=== PATIENT | female | born 1955 | race Caucasian/White ===

== ENCOUNTER → 2018-11-15 | Outpatient (CLI) | payer MEDICARE, OTHER ==
[~2018-11-15] MED LIST: AMLO5 PO; ATEN50; ATEN50 PO; HYDCHL25 PO; INSN100I SC; INSR10I; INSR10I SC; LISI20; LISI20 PO; METF500; METF500 PO; WARF10 PO; WARF5 PO; [UNRECOGNIZED DRUG - CODE]
[2018-11-15 19:53] LABS: International Normalized Ratio 2.22; Prothrombin Time Results 21.9 Sec (9.7-11.5)
== END | disposition home or self-care (01) ==
LOC: LAB SHORT 18:31 → LAB 18:31
PROVIDERS: Nurse Practitioner Family
DX: Z79.01 Long term (current) use of anticoagulants (principal); Z51.81 Encounter for therapeutic drug level monitoring
CPT/HCPCS: 85610

== ENCOUNTER → 2018-12-27 | Outpatient (CLI) | payer MEDICARE, OTHER ==
[2018-12-27 20:06] LABS: International Normalized Ratio 2.19; Prothrombin Time Results 21.6 Sec (9.7-11.5)
== END | disposition home or self-care (01) ==
LOC: LAB 18:08 → LAB SHORT 18:08
PROVIDERS: Nurse Practitioner Family
DX: Z79.01 Long term (current) use of anticoagulants (principal); Z51.81 Encounter for therapeutic drug level monitoring
CPT/HCPCS: 85610

== ENCOUNTER → 2019-02-28 | Outpatient (CLI) | payer MEDICARE, OTHER ==
[2019-02-28 18:25] LABS: International Normalized Ratio 1.58; Prothrombin Time Results 16.5 Sec (9.7-11.5)
== END | disposition home or self-care (01) ==
LOC: LAB 16:57 → LAB SHORT 16:57
PROVIDERS: Nurse Practitioner Family
DX: Z79.01 Long term (current) use of anticoagulants (principal); Z51.81 Encounter for therapeutic drug level monitoring; Z11.59 Encounter for screening for other viral diseases
CPT/HCPCS: 85610; 86803

== ENCOUNTER → 2019-03-16 | Outpatient (CLI) | payer MEDICARE, OTHER ==
[2019-03-16 18:54] LABS: Prothrombin Time Results 43.4 Sec (9.7-11.5)
[2019-03-16 19:34] LABS: International Normalized Ratio 4.41
== END | disposition home or self-care (01) ==
LOC: LAB SHORT 17:34 → LAB 17:34
PROVIDERS: Nurse Practitioner Family
DX: Z79.01 Long term (current) use of anticoagulants (principal); Z51.81 Encounter for therapeutic drug level monitoring
CPT/HCPCS: 85610

== ENCOUNTER → 2019-03-23 | Outpatient (CLI) | payer MEDICARE, OTHER ==
[2019-03-23 17:56] LABS: International Normalized Ratio 1.87; Prothrombin Time Results 19.3 Sec (9.7-11.5)
== END ==
LOC: LAB SHORT 16:27 → LAB 16:27
PROVIDERS: Nurse Practitioner Family
DX: Z79.01 Long term (current) use of anticoagulants (principal); Z51.81 Encounter for therapeutic drug level monitoring
CPT/HCPCS: 85610

== ENCOUNTER → 2019-04-24 | Outpatient (CLI) | payer MEDICARE, OTHER ==
[2019-04-24 17:46] LABS: International Normalized Ratio 2.35
== END ==
LOC: LAB SHORT 16:20 → LAB 16:20
PROVIDERS: Nurse Practitioner Family
DX: Z79.01 Long term (current) use of anticoagulants (principal); Z51.81 Encounter for therapeutic drug level monitoring
CPT/HCPCS: 85610

== ENCOUNTER → 2019-06-13 | Outpatient (CLI) | payer MEDICARE, OTHER ==
[2019-06-13 17:43] LABS: Source, Urine Clean Catch
[2019-06-13 19:54] LABS: BASOPHILS ABSOLUTE AUTO 0.04 K/mm3 (0.00-0.23); BASOPHILS PERCENT AUTO 1 % (0-2); EOSINOPHILS ABSOLUTE AUTO 0.55 K/mm3 (0.00-0.68); EOSINOPHILS PERCENT AUTO 11 % (0-6); Hematocrit 50.8 % (33.0-51.0); Hemoglobin 16.1 g/dL (11.5-16.0); IMMATURE GRAN ABSOLUTE AUTO 0.05 K/mm3 (0.00-0.10); IMMATURE GRAN PERCENT AUTO 1 % (0-1); LYMPHOCYTES ABSOLUTE AUTO 1.39 K/mm3 (0.84-5.20); LYMPHOCYTES PERCENT AUTO 28 % (21-46); MONOCYTES ABSOLUTE AUTO 0.55 K/mm3 (0.16-1.47); MONOCYTES PERCENT AUTO 11 % (4-13); Mean Corpuscular HGB Conc 31.7 g/dL (31.5-36.5); Mean Corpuscular Volume 91 fL (80-100); Mean Platelet Volume 11.3 fL (9.1-12.4); NEUTROPHILS ABSOLUTE AUTO 2.38 K/mm3 (1.96-9.15); NEUTROPHILS PERCENT AUTO 48 % (41-73); Platelet Count 200 K/mm3 (150-400); RDW Coefficient Variation 12.9 % (11.7-14.2); RDW Standard Deviation 43.9 fL (35.1-46.3); Red Blood Cell Count 5.56 M/mm3 (3.80-5.20); White Blood Cell Count 4.96 K/mm3 (4.00-11.30)
[2019-06-13 20:05] LABS: International Normalized Ratio 1.87; Prothrombin Time Results 19.3 Sec (9.7-11.5)
[2019-06-13 20:07] LABS: Bilirubin, Urine Neg (Neg); Blood, Urine Neg (Neg); Glucose Qualitative, Urine 4+ (Neg); Ketones, Urine Neg (Neg); Leukocyte Esterase, Urine 2+ (Neg); Nitrite, Urine Neg (Neg); Protein, Urine Neg (Neg); Urobilinogen, Urine NORM (Normal)
[2019-06-13 20:09] LABS: Appearance, Urine Clear (Clear); Color, Urine Yellow (P-Yellow)
[2019-06-13 20:10] LABS: Bacteria Mod /hpf; Red Blood Cells, Urine 0-2 /hpf (0-2); Squamous Epithelial Cells Few /hpf (Few)
[2019-06-13 20:49] LABS: Alanine Aminotransfer (ALT/SGP 23 U/L (12-78); Albumin, Blood 3.7 g/dL (3.4-5.0); Albumin/Globulin Ratio 1.1 (0.8-1.8); Alk Phos 64 U/L (50-136); Anion Gap 3 mmol/L (6-16); Aspartate Aminotrans (AST/SGOT 12 U/L (12-37); Bilirubin, Total 0.4 mg/dL (0.1-1.0); Blood Urea Nitrogen 15 mg/dL (8-24); CHOL/HDL RATIO 4.8; CO2, Blood 30 mmol/L (21-32); Calcium, Blood 8.4 mg/dL (8.5-10.1); Chloride, Blood 104 mmol/L (98-108); Cholesterol 143 mg/dL (50-200); Creatinine, Blood 0.71 mg/dL (0.40-1.00); Globulin, Blood 3.5 g/dL (2.2-4.0); Glomerular Filtration Rate >60 (60-); Glucose, Blood 202 mg/dL (70-99); HDL Cholesterol 30 mg/dL (>39); LDL Direct Measurement 61 mg/dL (0-130); LDL/HDL RATIO 2.5; Low Density Lipoprotein Chol 76 mg/dL (0-110); Potassium, Blood 3.8 mmol/L (3.5-5.5); Sodium, Blood 137 mmol/L (136-145); Total Protein, Blood 7.2 g/dL (6.4-8.2); Triglycerides 186 mg/dL (30-160); Very Low Density Lipoprot Chol 37 mg/dL (6-32)
[2019-06-13 21:03] LABS: Creatinine, Urine Random 30.9 mg/dL (27.00-270.00)
[2019-06-13 21:06] LABS: Microalb/Creat Ratio UR, Rand 144.984 mg/g (0.000-30.000); Microalbumin, Random Urine 44.8 mg/L (0.000-20.000)
== END | disposition home or self-care (01) ==
LOC: LAB 17:40 → LAB SHORT 17:40
PROVIDERS: Nurse Practitioner Family
DX: Z79.01 Long term (current) use of anticoagulants (principal); Z51.81 Encounter for therapeutic drug level monitoring; I10 Essential (primary) hypertension; E11.21 Type 2 diabetes mellitus with diabetic nephropathy; E78.5 Hyperlipidemia, unspecified
CPT/HCPCS: 80053; 80061; 81001; 82043; 82570; 83036; 83721; 85025; 85610; 87086

== ENCOUNTER → 2019-10-03 | Outpatient (CLI) | payer MEDICARE, OTHER ==
[2019-10-03 19:37] LABS: International Normalized Ratio 1.92; Prothrombin Time Results 19.8 Sec (9.7-11.5)
== END | disposition home or self-care (01) ==
LOC: LAB 17:59 → LAB SHORT 17:59
PROVIDERS: Nurse Practitioner Family
DX: Z79.01 Long term (current) use of anticoagulants (principal); Z51.81 Encounter for therapeutic drug level monitoring
CPT/HCPCS: 85610

== ENCOUNTER → 2019-11-14 | Outpatient (CLI) | payer MEDICARE, OTHER ==
[2019-11-14 18:11] LABS: International Normalized Ratio 2.25
== END | disposition home or self-care (01) ==
LOC: LAB 16:48 → LAB SHORT 16:48
PROVIDERS: Nurse Practitioner Family
DX: Z79.01 Long term (current) use of anticoagulants (principal); Z51.81 Encounter for therapeutic drug level monitoring
CPT/HCPCS: 85610

== ENCOUNTER → 2019-12-14 | Outpatient (CLI) | payer MEDICARE, OTHER ==
[2019-12-14 19:55] LABS: International Normalized Ratio 2.89; Prothrombin Time Results 29.1 Sec (9.7-11.5)
== END | disposition home or self-care (01) ==
LOC: LAB SHORT 17:38 → LAB 17:38
PROVIDERS: Nurse Practitioner Family
DX: Z79.01 Long term (current) use of anticoagulants (principal); Z51.81 Encounter for therapeutic drug level monitoring
CPT/HCPCS: 85610

== ENCOUNTER → 2020-01-18 | Outpatient (CLI) | payer MEDICARE, OTHER ==
[2020-01-18 18:29] LABS: International Normalized Ratio 2.39; Prothrombin Time Results 24.3 Sec (9.7-11.5)
== END | disposition home or self-care (01) ==
LOC: LAB 17:24
PROVIDERS: Nurse Practitioner Family
DX: Z79.01 Long term (current) use of anticoagulants (principal); Z51.81 Encounter for therapeutic drug level monitoring
CPT/HCPCS: 85610

== ENCOUNTER → 2020-04-18 | Outpatient (CLI) | payer MEDICARE, OTHER ==
[2020-04-18 17:43] LABS: BASOPHILS ABSOLUTE AUTO 0.05 K/mm3 (0.00-0.23); BASOPHILS PERCENT AUTO 1 % (0-2); EOSINOPHILS ABSOLUTE AUTO 0.64 K/mm3 (0.00-0.68); EOSINOPHILS PERCENT AUTO 13 % (0-6); Hematocrit 49.4 % (33.0-51.0); Hemoglobin 16.5 g/dL (11.5-16.0); IMMATURE GRAN ABSOLUTE AUTO 0.03 K/mm3 (0.00-0.10); IMMATURE GRAN PERCENT AUTO 1 % (0-1); LYMPHOCYTES ABSOLUTE AUTO 1.28 K/mm3 (0.84-5.20); LYMPHOCYTES PERCENT AUTO 25 % (21-46); MONOCYTES ABSOLUTE AUTO 0.44 K/mm3 (0.16-1.47); MONOCYTES PERCENT AUTO 9 % (4-13); Mean Corpuscular HGB Conc 33.4 g/dL (31.5-36.5); Mean Corpuscular Volume 87 fL (80-100); Mean Platelet Volume 11.5 fL (9.1-12.4); NEUTROPHILS PERCENT AUTO 52 % (41-73); Platelet Count 190 K/mm3 (150-400); RDW Coefficient Variation 12.3 % (11.7-14.2); RDW Standard Deviation 38.9 fL (35.1-46.3); Red Blood Cell Count 5.69 M/mm3 (3.80-5.20); White Blood Cell Count 5.14 K/mm3 (4.00-11.30)
[2020-04-18 17:44] LABS: Appearance, Urine Clear (Clear); Bilirubin, Urine Neg (Neg); Blood, Urine 1+ (Neg); Color, Urine Yellow (P-Yellow); Glucose Qualitative, Urine 4+ (Neg); Ketones, Urine Neg (Neg); Leukocyte Esterase, Urine Neg (Neg); Nitrite, Urine Neg (Neg); Protein, Urine 1+ (Neg); Urobilinogen, Urine NORM (Normal)
[2020-04-18 17:52] LABS: Bacteria Few /hpf; Squamous Epithelial Cells Few /hpf (Few)
[2020-04-18 18:20] LABS: Alanine Aminotransfer (ALT/SGP 27 U/L (12-78); Albumin, Blood 3.8 g/dL (3.4-5.0); Albumin/Globulin Ratio 1.2 (0.8-1.8); Alk Phos 76 U/L (50-136); Anion Gap 6 mmol/L (6-16); Aspartate Aminotrans (AST/SGOT 12 U/L (12-37); Bilirubin, Total 0.7 mg/dL (0.1-1.0); Blood Urea Nitrogen 15 mg/dL (8-24); Bun/Creatinine Ratio 20.8 (12.0-20.0); CHOL/HDL RATIO 3.6; CO2, Blood 28 mmol/L (21-32); Calcium, Blood 8.6 mg/dL (8.5-10.1); Chloride, Blood 103 mmol/L (98-108); Cholesterol 107 mg/dL (50-200); Creatinine, Blood 0.72 mg/dL (0.40-1.00); Globulin, Blood 3.3 g/dL (2.2-4.0); Glomerular Filtration Rate >60 (60-); Glucose, Blood 255 mg/dL (70-99); HDL Cholesterol 30 mg/dL (>39); LDL Direct Measurement 58 mg/dL (0-130); LDL/HDL RATIO 1.3; Low Density Lipoprotein Chol 38 mg/dL (0-110); Sodium, Blood 137 mmol/L (136-145); Total Protein, Blood 7.1 g/dL (6.4-8.2); Triglycerides 193 mg/dL (30-160); Very Low Density Lipoprot Chol 38 mg/dL (6-32)
== END | disposition home or self-care (01) ==
LOC: LAB 16:38 → LAB SHORT 16:38
PROVIDERS: Nurse Practitioner Family
DX: E11.21 Type 2 diabetes mellitus with diabetic nephropathy (principal); E78.5 Hyperlipidemia, unspecified
CPT/HCPCS: 80053; 80061; 81001; 83036; 83721; 85025

== ENCOUNTER → 2020-07-18 | Outpatient (CLI) | payer MEDICARE, OTHER ==
[2020-07-18 20:05] LABS: International Normalized Ratio 1.8; Prothrombin Time Results 18.8 Sec (9.7-11.5)
== END | disposition home or self-care (01) ==
LOC: LAB SHORT 13:10 → LAB 13:10
PROVIDERS: Nurse Practitioner Family
DX: Z09 Encounter for follow-up examination after completed treatment for conditions other than malignant neoplasm (principal); Z86.718 Personal history of other venous thrombosis and embolism
CPT/HCPCS: 85610

== ENCOUNTER → 2021-03-11 | Outpatient (CLI) | payer MEDICARE, OTHER ==
[2021-03-11 19:14] LABS: International Normalized Ratio 1.86; Prothrombin Time Results 18.8 Sec (9.7-11.5)
[2021-03-11 22:16] LABS: Alanine Aminotransfer (ALT/SGP 30 U/L (12-78); Albumin, Blood 3.6 g/dL (3.4-5.0); Albumin/Globulin Ratio 1.1 (0.8-1.8); Alk Phos 53 U/L (50-136); Anion Gap 6 mmol/L (6-16); Aspartate Aminotrans (AST/SGOT 12 U/L (12-37); Bilirubin, Total 0.7 mg/dL (0.1-1.0); Blood Urea Nitrogen 17 mg/dL (8-24); Bun/Creatinine Ratio 18.7 (12.0-20.0); CO2, Blood 28 mmol/L (21-32); Calcium, Blood 8.7 mg/dL (8.5-10.1); Chloride, Blood 103 mmol/L (98-108); Cholesterol 101 mg/dL (50-200); Creatinine, Blood 0.91 mg/dL (0.40-1.00); Globulin, Blood 3.2 g/dL (2.2-4.0); Glomerular Filtration Rate >60 (60-); Glucose, Blood 268 mg/dL (70-99); Potassium, Blood 3.8 mmol/L (3.5-5.5); Sodium, Blood 137 mmol/L (136-145); Total Protein, Blood 6.8 g/dL (6.4-8.2)
== END | disposition home or self-care (01) ==
LOC: LAB SHORT 10:00 → LAB 10:00
PROVIDERS: Nurse Practitioner Family
DX: E11.40 Type 2 diabetes mellitus with diabetic neuropathy, unspecified (principal); I10 Essential (primary) hypertension; E78.5 Hyperlipidemia, unspecified; I82.409 Acute embolism and thrombosis of unspecified deep veins of unspecified lower extremity
CPT/HCPCS: 80053; 82043; 82465; 84443; 85610

== ENCOUNTER → 2021-04-03 | Outpatient (CLI) | payer MEDICARE, OTHER ==
[2021-04-03 18:16] LABS: International Normalized Ratio 3.99; Prothrombin Time Results 38.3 Sec (9.7-11.5)
== END | disposition home or self-care (01) ==
LOC: LAB SHORT 14:05 → LAB 14:05
PROVIDERS: Nurse Practitioner Family
DX: Z09 Encounter for follow-up examination after completed treatment for conditions other than malignant neoplasm (principal); Z86.718 Personal history of other venous thrombosis and embolism
CPT/HCPCS: 85610

== ENCOUNTER → 2021-04-23 | Outpatient (CLI) | payer MEDICARE, OTHER ==
[2021-04-23 16:50] LABS: International Normalized Ratio 2.66; Prothrombin Time Results 26.2 Sec (9.7-11.5)
== END | disposition home or self-care (01) ==
LOC: LAB SHORT 12:15
PROVIDERS: Nurse Practitioner Family
DX: Z09 Encounter for follow-up examination after completed treatment for conditions other than malignant neoplasm (principal); Z86.718 Personal history of other venous thrombosis and embolism
CPT/HCPCS: 85610

== ENCOUNTER → 2022-06-01 | Outpatient (CLI) | payer MEDICARE, OTHER ==
[2022-06-01 17:46] LABS: BASOPHILS ABSOLUTE AUTO 0.05 K/mm3 (0.00-0.23); BASOPHILS PERCENT AUTO 1 % (0-2); EOSINOPHILS ABSOLUTE AUTO 0.41 K/mm3 (0.00-0.68); EOSINOPHILS PERCENT AUTO 7 % (0-6); Hemoglobin 15.2 g/dL (11.5-16.0); IMMATURE GRAN ABSOLUTE AUTO 0.08 K/mm3 (0.00-0.10); IMMATURE GRAN PERCENT AUTO 1 % (0-1); LYMPHOCYTES ABSOLUTE AUTO 1.51 K/mm3 (0.84-5.20); LYMPHOCYTES PERCENT AUTO 24 % (21-46); MONOCYTES ABSOLUTE AUTO 0.62 K/mm3 (0.16-1.47); MONOCYTES PERCENT AUTO 10 % (4-13); Mean Corpuscular HGB 29.5 pg (26.0-34.0); Mean Corpuscular HGB Conc 33.8 g/dL (31.5-36.5); Mean Corpuscular Volume 87 fL (80-100); Mean Platelet Volume 10.8 fL (9.1-12.4); NEUTROPHILS ABSOLUTE AUTO 3.59 K/mm3 (1.96-9.15); NEUTROPHILS PERCENT AUTO 57 % (41-73); Platelet Count 244 K/mm3 (150-400); RDW Coefficient Variation 13.6 % (11.7-14.2); RDW Standard Deviation 43.1 fL (35.1-46.3); Red Blood Cell Count 5.16 M/mm3 (3.80-5.20); White Blood Cell Count 6.26 K/mm3 (4.00-11.30)
[2022-06-01 18:19] LABS: Very Low Density Lipoprot Chol 78 mg/dL (6-32)
[2022-06-01 18:31] LABS: Alanine Aminotransfer (ALT/SGP 35 U/L (12-78); Albumin, Blood 3.4 g/dL (3.4-5.0); Albumin/Globulin Ratio 0.9 (0.8-1.8); Alk Phos 69 U/L (50-136); Anion Gap 8 mmol/L (6-16); Aspartate Aminotrans (AST/SGOT 14 U/L (12-37); Bilirubin, Total 0.5 mg/dL (0.1-1.0); Blood Urea Nitrogen 25 mg/dL (8-24); Bun/Creatinine Ratio 24.8 (12.0-20.0); CHOL/HDL RATIO 5.7; CO2, Blood 24 mmol/L (21-32); Calcium, Blood 9.2 mg/dL (8.5-10.1); Chloride, Blood 103 mmol/L (98-108); Cholesterol 171 mg/dL (50-200); Creatinine, Blood 1.01 mg/dL (0.40-1.00); Globulin, Blood 3.6 g/dL (2.2-4.0); Glomerular Filtration Rate 61 (60-); Glucose, Blood 332 mg/dL (70-99); HDL Cholesterol 30 mg/dL (>39); LDL/HDL RATIO 2.1; Low Density Lipoprotein Chol 63 mg/dL (0-110); Potassium, Blood 3.7 mmol/L (3.5-5.5); Sodium, Blood 135 mmol/L (136-145); Thyroid Stimulating Hormone 0.477 uIU/mL (0.360-4.800); Triglycerides 391 mg/dL (30-160)
== END | disposition home or self-care (01) ==
LOC: LAB SHORT 16:43 → LAB 16:43
PROVIDERS: Nurse Practitioner Family
DX: Z13.9 Encounter for screening, unspecified (principal); E78.5 Hyperlipidemia, unspecified; E55.9 Vitamin D deficiency, unspecified; Z79.4 Long term (current) use of insulin
CPT/HCPCS: 80053; 80061; 82306; 83036; 84443; 85025

== ENCOUNTER → 2023-03-04 | Outpatient (CLI) | payer MEDICARE ==
[2023-03-04 17:34] LABS: BASOPHILS ABSOLUTE AUTO 0.05 K/mm3 (0.00-0.23); BASOPHILS PERCENT AUTO 1 % (0-2); EOSINOPHILS ABSOLUTE AUTO 0.43 K/mm3 (0.00-0.68); EOSINOPHILS PERCENT AUTO 6 % (0-6); Hematocrit 51.8 % (33.0-51.0); Hemoglobin 16.6 g/dL (11.5-16.0); IMMATURE GRAN ABSOLUTE AUTO 0.07 K/mm3 (0.00-0.10); IMMATURE GRAN PERCENT AUTO 1 % (0-1); LYMPHOCYTES ABSOLUTE AUTO 1.31 K/mm3 (0.84-5.20); LYMPHOCYTES PERCENT AUTO 19 % (21-46); MONOCYTES ABSOLUTE AUTO 0.52 K/mm3 (0.16-1.47); MONOCYTES PERCENT AUTO 8 % (4-13); Mean Corpuscular Volume 90 fL (80-100); Mean Platelet Volume 10.8 fL (9.1-12.4); NEUTROPHILS ABSOLUTE AUTO 4.58 K/mm3 (1.96-9.15); NEUTROPHILS PERCENT AUTO 66 % (41-73); Platelet Count 225 K/mm3 (150-400); RDW Coefficient Variation 12.8 % (11.7-14.2); RDW Standard Deviation 42.1 fL (35.1-46.3); Red Blood Cell Count 5.73 M/mm3 (3.80-5.20); White Blood Cell Count 6.96 K/mm3 (4.00-11.30)
[2023-03-04 17:42] LABS: Magnesium, Blood 1.4 mg/dL (1.6-2.4)
[2023-03-04 17:52] LABS: Cholesterol 128 mg/dL (50-200); HDL Cholesterol 32 mg/dL (>39); Low Density Lipoprotein Chol 63 mg/dL (0-110); Triglycerides 167 mg/dL (30-160); Very Low Density Lipoprot Chol 33 mg/dL (6-32)
[2023-03-06 09:11] LABS: BILIRUBIN, TOTAL 0.4 mg/dL (0.0-1.2); CALCIUM, SERUM 9.2 mg/dL (8.7-10.3); CREATININE, SERUM 1.16 mg/dL (0.57-1.00); GLOBULIN, TOTAL 2.2 g/dL (1.5-4.5); POTASSIUM, SERUM 4.3 mmol/L (3.5-5.2); PROTEIN, TOTAL, SERUM 6.7 g/dL (6.0-8.5)
== END ==
LOC: LAB 16:11 → LAB SHORT 16:11
PROVIDERS: Family Medicine
DX: E78.5 Hyperlipidemia, unspecified (principal); R63.5 Abnormal weight gain; E55.9 Vitamin D deficiency, unspecified
CPT/HCPCS: 80053; 80061; 82306; 83735; 84443; 85025

== ENCOUNTER → 2024-04-03 | Outpatient (CLI) | payer MEDICARE ==
[~2024-04-03] MED LIST changes: +CHLO25B PO; +Coumadin2 MG PO; +ENOX120I SC; +ERGO50000 PO; +TRAZ50 PO; +WARF7.5 PO
[2024-04-03 17:22] LABS: BASOPHILS ABSOLUTE AUTO 0.06 K/mm3 (0.00-0.23); BASOPHILS PERCENT AUTO 1 % (0-2); EOSINOPHILS ABSOLUTE AUTO 0.59 K/mm3 (0.00-0.68); EOSINOPHILS PERCENT AUTO 10 % (0-6); Hematocrit 44.3 % (33.0-51.0); IMMATURE GRAN ABSOLUTE AUTO 0.09 K/mm3 (0.00-0.10); IMMATURE GRAN PERCENT AUTO 2 % (0-1); LYMPHOCYTES ABSOLUTE AUTO 1.56 K/mm3 (0.84-5.20); LYMPHOCYTES PERCENT AUTO 27 % (21-46); MONOCYTES ABSOLUTE AUTO 0.56 K/mm3 (0.16-1.47); MONOCYTES PERCENT AUTO 10 % (4-13); Mean Corpuscular HGB 29.2 pg (26.0-34.0); Mean Corpuscular HGB Conc 33.9 g/dL (31.5-36.5); Mean Corpuscular Volume 86 fL (80-100); Mean Platelet Volume 10.9 fL (9.1-12.4); NEUTROPHILS ABSOLUTE AUTO 2.86 K/mm3 (1.96-9.15); NEUTROPHILS PERCENT AUTO 50 % (41-73); Platelet Count 248 K/mm3 (150-400); RDW Coefficient Variation 13.2 % (11.7-14.2); RDW Standard Deviation 41.6 fL (35.1-46.3); Red Blood Cell Count 5.14 M/mm3 (3.80-5.20); White Blood Cell Count 5.72 K/mm3 (4.00-11.30)
[2024-04-03 18:37] LABS: Alanine Aminotransfer (ALT/SGP 21 U/L (12-78); Albumin, Blood 3.3 g/dL (3.4-5.0); Albumin/Globulin Ratio 0.9 (0.8-1.8); Alk Phos 83 U/L (50-136); Anion Gap 13 mmol/L (3-11); Bilirubin, Total 0.4 mg/dL (0.1-1.0); Blood Urea Nitrogen 37 mg/dL (8-24); CHOL/HDL RATIO 5.9; CO2, Blood 27 mmol/L (21-32); Calcium, Blood 9.5 mg/dL (8.5-10.1); Chloride, Blood 98 mmol/L (98-108); Cholesterol 165 mg/dL (50-200); Globulin, Blood 3.6 g/dL (2.2-4.0); Glucose, Blood 431 mg/dL (70-99); HDL Cholesterol 28 mg/dL (>39); LDL/HDL RATIO 2.3; Low Density Lipoprotein Chol 66 mg/dL (0-110); Potassium, Blood 3.7 mmol/L (3.5-5.5); Sodium, Blood 134 mmol/L (136-145); Total Protein, Blood 6.9 g/dL (6.4-8.2); Triglycerides 357 mg/dL (30-160); Very Low Density Lipoprot Chol 71 mg/dL (6-32)
[2024-04-03 18:50] LABS: Aspartate Aminotrans (AST/SGOT 8 U/L (12-37); Bun/Creatinine Ratio 28.9 (12.0-20.0); Creatinine, Blood 1.28 mg/dL (0.40-1.00); Glomerular Filtration Rate 45 (60-)
== END ==
LOC: LAB SHORT 16:10 → LAB 16:10
PROVIDERS: Nurse Practitioner Family
DX: E78.5 Hyperlipidemia, unspecified (principal); E11.40 Type 2 diabetes mellitus with diabetic neuropathy, unspecified; I10 Essential (primary) hypertension
CPT/HCPCS: 80053; 80061; 83036; 84443; 85025

== ENCOUNTER 2024-04-28 09:37 | Inpatient (IN) | payer MEDICARE ==
[~2024-04-28] VITALS: Ht 162.6 cm; Wt 116.3 kg
[2024-04-28] VITALS (14 sets, daily range): BP systolic 85–107; BP diastolic 59–77
[2024-04-28] MEDS ORDERED: Lactated Ringer's 1,000 ML IV ONE ×2 (09:55→10:00)
[2024-04-28] MEDS ORDERED: Albuterol 2.5 MG/3 ML VIAL INH ONE (09:55)
[2024-04-28] MEDS ORDERED: Ipratropium/Albuterol SulF 2.5-0.5MG/3 ML Amp INH ONE (09:55)
[2024-04-28] MEDS ORDERED: Acetaminophen 500 MG Tab PO ONE (09:55)
[2024-04-28] MEDS ORDERED: Ampicillin Sod/Sulbactam Sod 3 GM in NS 100 ML IV ONE (10:00)
[2024-04-28] MEDS ORDERED: Insulin Human Regular 100 UNIT in NS 100 ML IV SCH (10:00)
[2024-04-28] MEDS ORDERED: Potassium Chl 20MEQ/Water100ML 100 ML IV ONE ×3 (10:00→17:55)
[2024-04-28 10:08] LABS: Hemoglobin 13.9 g/dL (11.5-16.0); Mean Corpuscular HGB 29.9 pg (26.0-34.0); Mean Corpuscular HGB Conc 33.9 g/dL (31.5-36.5); Mean Corpuscular Volume 88 fL (80-100); Mean Platelet Volume 10.8 fL (9.1-12.4); NRBC ABSOLUTE 0.04 K/mm3 (0.00-0.02); NRBC Auto 0.3 /100 WBC (0.0-0.2); Platelet Count 140 K/mm3 (150-400); RDW Coefficient Variation 14.4 % (11.7-14.2); RDW Standard Deviation 46.2 fL (35.1-46.3); Red Blood Cell Count 4.65 M/mm3 (3.80-5.20); White Blood Cell Count 11.81 K/mm3 (4.00-11.30)
[2024-04-28 10:12] LABS: Base Excess Venous -10.2 mmol/L; Bicarbonate Venous 17.1 mmol/L (24.0-30.0); PCO2 Venous 33.5 mmHg (38-42)
[2024-04-28 10:33] LABS: BAND PERCENT MAN 16 % (0-8); BASOPHILS PERCENT MAN 0 % (0-2); EOSINOPHILS PERCENT MAN 0 % (0-6); LYMPHOCYTES ABSOLUTE MAN 1.06 K/mm3 (0.84-5.20); LYMPHOCYTES PERCENT MAN 9 % (21-46); MONOCYTES ABSOLUTE MAN 0.47 K/mm3 (0.16-1.47); MONOCYTES PERCENT MAN 4 % (4-13); NEUTROPHILS ABSOLUTE MAN 10.27 K/mm3 (1.96-9.15); SEG NEUTROPHILS PERCENT MAN 71 % (41-73); TOTAL CELLS COUNTED 100
[2024-04-28 10:45] LABS: Influenza A, PCR NEGATIVE (NEGATIVE); Influenza B, PCR NEGATIVE (NEGATIVE); Resp Syncytial Virus, PCR NEGATIVE (NEGATIVE); SARS-Cov-2 (COVID-19) PCR, MMC NEGATIVE (NEGATIVE)
[2024-04-28 11:07] LABS: International Normalized Ratio 3.03; Prothrombin Time Results 29.9 Sec (9.7-11.5)
[2024-04-28 11:09] LABS: Magnesium, Blood 1.2 mg/dL (1.6-2.4)
[2024-04-28 11:16] LABS: Albumin, Blood 2.9 g/dL (3.4-5.0); Albumin/Globulin Ratio 0.8 (0.8-1.8); Bilirubin, Total 0.8 mg/dL (0.1-1.0); Bun/Creatinine Ratio 15.8 (12.0-20.0); Calcium, Blood 8.7 mg/dL (8.5-10.1); Creatinine, Blood 2.09 mg/dL (0.40-1.00); Globulin, Blood 3.6 g/dL (2.2-4.0); Potassium, Blood 3.8 mmol/L (3.5-5.5); Total Protein, Blood 6.5 g/dL (6.4-8.2)
[2024-04-28] MEDS ORDERED: Magnesium Sulf 2 GM/Water 50ML 50 ML IV ONE (11:25)
[2024-04-28] MEDS ORDERED: Prochlorperazine Edisylate 10 mg Vial IV PRN (12:15)
[2024-04-28] MEDS ORDERED: D5W-1/2NS 1,000 ML IV SCH (12:20)
[2024-04-28] MEDS ORDERED: Acetaminophen 500 MG Tab PO PRN (12:20)
[2024-04-28] MEDS ORDERED: FLU VACC TS2024-25(6MOS UP)/PF 45 MCG/0.5 ML SYRINGE IM SCH (12:20)
[2024-04-28] MEDS ORDERED: Dextrose 50% 50 ML Syringe IV PRN (12:20)
[2024-04-28 12:43] LABS: Potassium, Blood 3.3 mmol/L (3.5-5.5)
[2024-04-28 12:59] LABS: Glucose, Blood 573 mg/dL (70-99)
[2024-04-28] MEDS ORDERED: CefTRIAXone Sodium 1,000 MG in NS 100 ML IV SCH (13:00)
[2024-04-28] MEDS ORDERED: Potassium Chloride 20 MEQ in NS 90 ML IV ONE (13:10)
[2024-04-28] MEDS ORDERED: NS 1,000 ML IV ONE (13:36)
[2024-04-28] MEDS ORDERED: NS 1,000 ML IV SCH (13:40)
[2024-04-28 14:04] LABS: Glucose, Blood 507 mg/dL (70-99)
[2024-04-28] MEDS ORDERED: INSULANI SC (14:08)
--- NOTE | 2024-04-28 14:21 | NUR ---
ADMIT PT ARRIVED TO ICU 2 VIA BED AT 1322. PT STOOD UP TO TRANSFER TO ICU BED. CHG BATH DONE. PT IS AWAKE, ALERT, AND ORIENTED. PT DENIES PAIN OF DISCOMFORT, BUT COMPLAINS OF SOB AND FEELING WARM. SPO2 >90% ON 4L O2 NC. VITAL SIGNS STABLE. INSULIN GTT INFUSING UPON ARRIVAL. IV FLUIDS STARTED PER ORDERS. WILL CONTINUE TO MONITOR.
[2024-04-28 17:24] LABS: Potassium, Blood 3.4 mmol/L (3.5-5.5)
--- NOTE | 2024-04-28 17:28 | NUR ---
SHIFT SUMMARY NO ACUTE CHANGES THIS AFTERNOON. PT HAS REMAINED AWAKE, ALERT, AND ORIENTED. PT DENIES PAIN OR DISCOMFORT. PT SITTING UP IN CHAIR AT THIS TIME. INSULIN GTT AND NS INFUSING. PT REMAINS ON 4L O2 NC WITH INCREASED WORK OF BREATHING WITH ANY ACTIVITY. VITAL SIGNS REMAIN STABLE. PT UP TO BSC FOR BM THIS AFTERNOON. NO FAMILY AT BEDSIDE. WILL CONTINUE TO MONITOR AND REPORT OFF TO ONCOMING RN.
[2024-04-28] MEDS ORDERED: Warfarin Sodium 5 MG Tab PO ONE (18:00)
[2024-04-28] MEDS ORDERED: Ondansetron HCl 2 MG / ML 2ML Vial IV PRN (18:50)
[2024-04-28] MEDS ORDERED: Lactobacil 2-S.Thermo-Bifido 1 1 Cap PO SCH (21:00)
[2024-04-28] MEDS ORDERED: GuaiFENesin 600 MG TabCR PO SCH (21:00)
[2024-04-28 21:05] LABS: Potassium, Blood 3.9 mmol/L (3.5-5.5)
[2024-04-28] MEDS ORDERED: Insulin Glargine-Yfgn 100 Unit/mL 3 ML SYR SC SCH (21:25)
[2024-04-29] VITALS (12 sets, daily range): BP systolic 97–141; BP diastolic 50–99
[2024-04-29] MEDS ORDERED: Insulin Regular 100 UNIT/ML 10ML Vial SC SCH
--- NOTE | 2024-04-29 01:18 | NUR ---
[facility] CALLED TO DR MAHAN
[2024-04-29 04:27] LABS: Hematocrit 40.1 % (33.0-51.0); Hemoglobin 13.3 g/dL (11.5-16.0); Mean Corpuscular HGB 29.2 pg (26.0-34.0); Mean Corpuscular HGB Conc 33.2 g/dL (31.5-36.5); Mean Corpuscular Volume 88 fL (80-100); Mean Platelet Volume 11.1 fL (9.1-12.4); Platelet Count 111 K/mm3 (150-400); RDW Coefficient Variation 14.9 % (11.7-14.2); RDW Standard Deviation 47.8 fL (35.1-46.3); Red Blood Cell Count 4.55 M/mm3 (3.80-5.20); White Blood Cell Count 23.31 K/mm3 (4.00-11.30)
[2024-04-29 04:40] LABS: International Normalized Ratio 2.7; Prothrombin Time Results 26.8 Sec (9.7-11.5)
[2024-04-29 04:56] LABS: Albumin, Blood 2.7 g/dL (3.4-5.0); Anion Gap 10 mmol/L (3-11); Blood Urea Nitrogen 46 mg/dL (8-24); CO2, Blood 24 mmol/L (21-32); Calcium, Blood 8.2 mg/dL (8.5-10.1); Chloride, Blood 102 mmol/L (98-108); Creatinine, Blood 2.55 mg/dL (0.40-1.00); Glomerular Filtration Rate 20 (60-); Glucose, Blood 226 mg/dL (70-99); Phosphorus, Blood 3.4 mg/dL (2.5-4.9); Potassium, Blood 4.3 mmol/L (3.5-5.5); Sodium, Blood 132 mmol/L (136-145); Thyroid Stimulating Hormone 0.253 uIU/mL (0.360-4.800)
--- NOTE | 2024-04-29 05:24 | NUR ---
SHIFT SUMMERY PT HAS BEEN ALERT AND ORIENTED X 4, UP TO BEDSIDE COMMODE W/ASSIST. OXYGEN SAT >91% ON NC. SR-ST ON THE OVERCASTER. BP WNL. AFEBRILE. PT WAS TRANSITIONED OFF OF THE INSULIN GTT BEFORE MIDNIGHT PER PROVIDER ORDER. PT HAS HAD NO N/V/D. PT DOES HAVE A PRODUCTIVE COUGH.
[2024-04-29] MEDS ORDERED: Albuterol 2.5 MG/3 ML VIAL INH PRN (08:20)
[2024-04-29] MEDS ORDERED: Cholecalciferol 1000 Unit Tablet (=25MCG) PO SCH (09:00)
[2024-04-29] MEDS ORDERED: CefTRIAXone Sodium 2,000 MG in NS 100 ML IV SCH (12:00)
--- NOTE | 2024-04-29 15:50 | NUR ---
TRANSFER TO MEDICAL REPORT CALLED VIA PHONE, ALL QUESTIONS ANSWERED. PT TAKEN TO ROOM 334 VIA WHEELCHAIR ON 4L O2 NC. ALL PT BELONGINGS SENT WITH PT.
--- NOTE | 2024-04-29 15:52 | NUR ---
PT ARRIVED TO UNIT AT APROX 1545 TX FROM ICU. PT A/O X'S 4. PT WOB INCREASED W/SBA TX TO BED FROM . RR INCREASED TO 22, O2 SAT REMAINED STABLE ON 4L O2 NC, PT RECOVERED WHEN PLACED UPRIGHT WITH PILLOWS BEHIND BACK. LUNGS COARSE IN BASES. ALL OTHER VSS UPON ARRIVAL.
[2024-04-29] MEDS ORDERED: Warfarin Sodium 7.5 MG Tab PO SCH (18:00)
--- NOTE | 2024-04-29 18:46 | NUR ---
NO ACUTE CHANGES SINCE ASSUMING CARE. PT BLOOD GLUCOSE COVERED PER LSS PER EMAR. NO INCREASED O2 REQUIREMENTS FROM PREV NOTE, 1 MIN ASSIST FROM CHAIR TO BED
[2024-04-29 19:13] LABS: Source, Urine Straight Cath
[2024-04-29 19:32] LABS: Appearance, Urine Cloudy (Clear); Bilirubin, Urine Neg (Neg); Blood, Urine 5+ (Neg); Color, Urine Yellow (P-Yellow); Glucose Qualitative, Urine 4+ (Neg); Ketones, Urine Neg (Neg); Leukocyte Esterase, Urine 3+ (Neg); Nitrite, Urine Neg (Neg); Protein, Urine 2+ (Neg); Specific Gravity, Urine 1.015 (1.003-1.022); Urobilinogen, Urine NORM (Normal)
[2024-04-29 19:44] LABS: Bacteria Many /hpf; Granular Casts 0-2 /lpf (0); Squamous Epithelial Cells Many /hpf (Few); Transitional Epithelial Cells Few /hpf (0-Rare); White Blood Cells, Urine 50-100 /hpf (0-5)
--- NOTE | 2024-04-30 03:10 | NUR ---
SHIFT SUMMARY PATIENT IS SLEEPING IN HER BEDSIDE CHAIR AT THIS TIME. SHE HAS WENT BACK AND FORTH BETWEEN HER CHAIR AND HER BED. PATIENT'S BREATH SOUNDS HAVE BEEN WHEEZY ON THIS SHIFT AND SHE GOT A PRN RESPIRATORY TREATMENT. PATIENT GETS VERY SOB WITH VERY LITTLE EXERTION. SUPPLEMENTAL 02 IS AT 4 LITERS BY NASAL CANNULA. PATIENT HAS HER CALL LIGHT WITHIN REACH AND SHE IS ON A CHAIR ALARM. SAFETY PRECAUTIONS ARE BEING MAINTAINED.
[2024-04-30 03:20] VITALS: BP 99/46
[2024-04-30 03:46] VITALS: BP 128/84
[2024-04-30 06:16] LABS: Hematocrit 39.6 % (33.0-51.0); Hemoglobin 13.1 g/dL (11.5-16.0); Mean Corpuscular HGB 29.4 pg (26.0-34.0); Mean Corpuscular HGB Conc 33.1 g/dL (31.5-36.5); Mean Corpuscular Volume 89 fL (80-100); Mean Platelet Volume 11.7 fL (9.1-12.4); Platelet Count 102 K/mm3 (150-400); RDW Coefficient Variation 15.3 % (11.7-14.2); RDW Standard Deviation 49.7 fL (35.1-46.3); Red Blood Cell Count 4.45 M/mm3 (3.80-5.20); White Blood Cell Count 14.58 K/mm3 (4.00-11.30)
[2024-04-30 06:29] LABS: International Normalized Ratio 3.31; Prothrombin Time Results 32.4 Sec (9.7-11.5)
[2024-04-30 06:31] LABS: Albumin, Blood 2.5 g/dL (3.4-5.0); Anion Gap 10 mmol/L (3-11); Blood Urea Nitrogen 54 mg/dL (8-24); Bun/Creatinine Ratio 21.2 (12.0-20.0); CO2, Blood 23 mmol/L (21-32); Calcium, Blood 8.6 mg/dL (8.5-10.1); Chloride, Blood 103 mmol/L (98-108); Creatinine, Blood 2.55 mg/dL (0.40-1.00); Glomerular Filtration Rate 20 (60-); Glucose, Blood 290 mg/dL (70-99); Phosphorus, Blood 3.9 mg/dL (2.5-4.9); Potassium, Blood 4.3 mmol/L (3.5-5.5); Sodium, Blood 132 mmol/L (136-145)
[2024-04-30 07:43] VITALS: BP 124/68
[2024-04-30] MEDS ORDERED: Insulin Regular 100 UNIT/ML 10ML Vial SC SCH (11:30)
[2024-04-30] MEDS ORDERED: Insulin Human Lispro 100 Units/ML 3ML Syringe SC SCH (12:35)
[2024-04-30] MEDS ORDERED: NS 250 ML IV PRN (14:05)
[2024-04-30 16:13] VITALS: BP 117/80
--- NOTE | 2024-04-30 16:41 | NUR ---
SHIFT SUMMARY: PATIENT A/OX4, PLEASANT AND COOPERATIVE c CARE. PATIENT DENIES CP/PRESSURE, SOB, N/V AND DIZZINESS. TELE DC'D TODAY PER ORDER. PATIENT MEDICATED X1 FOR GENERALIZED PAIN PER EMAR c MOD EFFECT. PATIENT CURRENTLY ON 2L O2 VIA NC, SATTING 94-95%, LUNGS SOUNDS STILL WHEEZY/DIM. PATIENT RECEIVED BREATHING TX ADMINISTERED BY RT PER ORDER. PATIENT SAT-UP IN RECLINER CHAIR FOR THE MAJORITY OF THIS SHIFT, TOLERATING WELL. PATIENT REPORTS "NO APPETITE.", CONTINENT OF BOWEL/BLADDER, USES BSC c SBA/FWW. PATIENT RECEIVED SCHEDULED IV ABX/MEDS PER EMAR. VITAL SIGNS REVIEWED. CALL LIGHT IN REACH.
[2024-04-30] MEDS ORDERED: Warfarin Sodium 2.5 MG Tab PO SCH (18:00)
[2024-04-30 19:16] VITALS: BP 115/69
[2024-04-30] MEDS ORDERED: Insulin Glargine-Yfgn 100 Unit/mL 3 ML SYR SC SCH (21:00)
[2024-05-01 03:47] VITALS: BP 151/81
--- NOTE | 2024-05-01 05:00 | NUR ---
AAOX4. 2L VIA NC, BASELINE RA. UP TO BSC WITH MINIMAL ASSIST. ELIZABETH IN RUE, RECIEVING HERMILO. ACHS BG CHECKS. NO ACUTE NEEDS OVERNIGHT. PLAN TO GO HOME MON. OR TUES, MAY NEED OXYGEN SET-UP. SHE LIVES WITH HER DAUGHTER.
[2024-05-01 05:52] LABS: BASOPHILS ABSOLUTE AUTO 0.06 K/mm3 (0.00-0.23); BASOPHILS PERCENT AUTO 1 % (0-2); Hematocrit 39.2 % (33.0-51.0); Hemoglobin 12.9 g/dL (11.5-16.0); LYMPHOCYTES PERCENT AUTO 9 % (21-46); MONOCYTES PERCENT AUTO 10 % (4-13); Mean Corpuscular HGB 29.4 pg (26.0-34.0); Mean Corpuscular HGB Conc 32.9 g/dL (31.5-36.5); Mean Corpuscular Volume 89 fL (80-100); Mean Platelet Volume 11.3 fL (9.1-12.4); Platelet Count 109 K/mm3 (150-400); RDW Coefficient Variation 15.3 % (11.7-14.2); RDW Standard Deviation 49.9 fL (35.1-46.3); Red Blood Cell Count 4.39 M/mm3 (3.80-5.20); White Blood Cell Count 11.53 K/mm3 (4.00-11.30)
[2024-05-01 05:53] LABS: EOSINOPHILS ABSOLUTE AUTO 0.53 K/mm3 (0.00-0.68); EOSINOPHILS PERCENT AUTO 5 % (0-6); IMMATURE GRAN ABSOLUTE AUTO 0.06 K/mm3 (0.00-0.10); IMMATURE GRAN PERCENT AUTO 1 % (0-1); NEUTROPHILS ABSOLUTE AUTO 8.68 K/mm3 (1.96-9.15); NEUTROPHILS PERCENT AUTO 75 % (41-73)
[2024-05-01 06:05] LABS: International Normalized Ratio 3.3; Prothrombin Time Results 32.3 Sec (9.7-11.5)
[2024-05-01 06:20] LABS: BASOPHILS ABSOLUTE MAN 0.11 K/mm3 (0.00-0.23); BASOPHILS PERCENT MAN 1 % (0-2); EOSINOPHILS ABSOLUTE MAN 0.46 K/mm3 (0.00-0.68); EOSINOPHILS PERCENT MAN 4 % (0-6); LYMPHOCYTES ABSOLUTE MAN 0.92 K/mm3 (0.84-5.20); LYMPHOCYTES PERCENT MAN 8 % (21-46); MONOCYTES ABSOLUTE MAN 1.38 K/mm3 (0.16-1.47); MONOCYTES PERCENT MAN 12 % (4-13); NEUTROPHILS ABSOLUTE MAN 8.64 K/mm3 (1.96-9.15); SEG NEUTROPHILS PERCENT MAN 75 % (41-73); TOTAL CELLS COUNTED 100
[2024-05-01 06:25] LABS: Bun/Creatinine Ratio 29.6 (12.0-20.0); Calcium, Blood 8.7 mg/dL (8.5-10.1); Creatinine, Blood 1.62 mg/dL (0.40-1.00); Free Thyroxine 1.34 ng/dL (0.70-1.60); Magnesium, Blood 2.1 mg/dL (1.6-2.4); Phosphorus, Blood 3.1 mg/dL (2.5-4.9); Potassium, Blood 4.1 mmol/L (3.5-5.5)
[2024-05-01 07:39] VITALS: BP 120/58
[2024-05-01 15:27] VITALS: BP 147/67
[2024-05-01] MEDS ORDERED: Insulin Human Lispro 100 Units/ML 3ML Syringe SC SCH (16:30)
--- NOTE | 2024-05-01 18:19 | NUR ---
SHIFT SUMMARY: PT A&O X4. PLEASANT AND COOPERATIVE WITH CARE. ONE PERSON ASSIST c FWW TO BATHROOM. PT C/O FREQUENT DIARRHEA T/O SHIFT. PT ALSO C/O 09/17 PAIN IN R. SIDE OF NECK. MEDICATED PER EMAR. BLOOD SUGARS REMAINS IN 200'S PRIOR TO MEALS. INSULIN PROVIDED PER EMAR. PLAN FOR D/C TOMORROW. ABX INFUSED W/O COMPLICATIONS. CALL LIGHT IN REACH. BED IN LOWEST POSITION.
[2024-05-01 19:18] VITALS: BP 139/85
[2024-05-02 04:17] VITALS: BP 152/54
--- NOTE | 2024-05-02 04:57 | NUR ---
AAOX3, USES CALL LIGHT AT TIMES BUT SETS OFF BED/CHAIR ALARM MORE OFTEN. AMBULATES TO BR WITH WALKER, MINIMAL TO NO ASSISTANCE. RA. ACHS BG CHECKS. 2100 BG 181 WHICH IS AN IMPROVEMENT. CAT JOHNSON, DOES NOT DRAW. UP AND DOWN TO BR AND BACK AND FORTH FROM CHAIR TO BED. PLAN IS TO DC HOMW WITH DAUGHTER.
[2024-05-02 05:57] LABS: BASOPHILS ABSOLUTE AUTO 0.09 K/mm3 (0.00-0.23); BASOPHILS PERCENT AUTO 1 % (0-2); EOSINOPHILS ABSOLUTE AUTO 0.09 K/mm3 (0.00-0.68); EOSINOPHILS PERCENT AUTO 1 % (0-6); Hematocrit 38.6 % (33.0-51.0); Hemoglobin 12.9 g/dL (11.5-16.0); IMMATURE GRAN PERCENT AUTO 4 % (0-1); LYMPHOCYTES ABSOLUTE AUTO 0.84 K/mm3 (0.84-5.20); LYMPHOCYTES PERCENT AUTO 8 % (21-46); MONOCYTES ABSOLUTE AUTO 1.87 K/mm3 (0.16-1.47); MONOCYTES PERCENT AUTO 17 % (4-13); Mean Corpuscular HGB 29.3 pg (26.0-34.0); Mean Corpuscular HGB Conc 33.4 g/dL (31.5-36.5); Mean Corpuscular Volume 88 fL (80-100); Mean Platelet Volume 10.8 fL (9.1-12.4); NEUTROPHILS ABSOLUTE AUTO 7.45 K/mm3 (1.96-9.15); NEUTROPHILS PERCENT AUTO 70 % (41-73); Platelet Count 141 K/mm3 (150-400); RDW Coefficient Variation 14.9 % (11.7-14.2); RDW Standard Deviation 48.2 fL (35.1-46.3); Red Blood Cell Count 4.41 M/mm3 (3.80-5.20); White Blood Cell Count 10.74 K/mm3 (4.00-11.30)
[2024-05-02 06:10] LABS: International Normalized Ratio 2.09; Prothrombin Time Results 21.2 Sec (9.7-11.5)
[2024-05-02 06:16] LABS: Bun/Creatinine Ratio 28.9 (12.0-20.0); Calcium, Blood 8.5 mg/dL (8.5-10.1); Creatinine, Blood 1.28 mg/dL (0.40-1.00); Potassium, Blood 3.8 mmol/L (3.5-5.5)
[2024-05-02 07:30] VITALS: BP 151/82
--- NOTE | 2024-05-02 14:50 | NUR ---
ATTEMPT TO CONTACT PT DAUGHTERS FOR A RIDE. UNABLE TO GET AHOLD OF EITHER DAUGHTER AT THIS TIME. PT STATES SHE DOES NOT KNOW OTHER NUMBERS AND HAS NO MONEY OR KEYS TO HER HOME WITH HER.
[2024-05-02] MEDS ORDERED: CEPH500 PO (15:25)
[2024-05-02] MEDS ORDERED: VISBIOME 112.51 EACH PO (15:25)
[2024-05-02] MEDS ORDERED: HUMALOG JU100 UNIT/2 SC (15:27)
--- NOTE | 2024-05-02 16:36 | NUR ---
DISCHARGE PT DISCHARGED AT 1546. PT AND DAUGHTER ON NEW MEDICATIONS AND FOLLOW UP APPOINTMENTS NEEDED. THE IMPORTANCE OF GOOD BLOOD SUGAR CONTROL WAS GONE OVER AND PATIENT STATED SHE UNDERSTOOD THIS DIRECTIONS. NO OTHER ACUTE CHANGES IN ASSESSMENT PRIOR TO DC. PT WHEELED OUT BY AIDE & DRIVEN HOME BY DAUGHTER.
[2024-05-02] MEDS ORDERED: Warfarin Sodium 5 MG Tab PO ONE (18:00)
== END 2024-05-02 15:46 | disposition home health service (06) | DRG 871 ==
LOC: ER 09:37 → MEDS 12:14 → ICUE 12:14 → UNDODEPER 04-29 05:50 → ICUE 04-29 08:34 → MEDS 04-29 15:36
PROVIDERS: Internal Medicine; Student in an Organized Health Care Education/Training Program; ADMIT Internal Medicine
DX: A41.51 Sepsis due to Escherichia coli [E. coli] (principal); E11.10 Type 2 diabetes mellitus with ketoacidosis without coma; J96.01 Acute respiratory failure with hypoxia; J18.0 Bronchopneumonia, unspecified organism; J44.0 Chronic obstructive pulmonary disease with (acute) lower respiratory infection; J44.1 Chronic obstructive pulmonary disease with (acute) exacerbation; N17.9 Acute kidney failure, unspecified; R65.20 Severe sepsis without septic shock; I12.9 Hypertensive chronic kidney disease with stage 1 through stage 4 chronic kidney disease, or unspecified chronic kidney disease; N18.30 Chronic kidney disease, stage 3 unspecified; E11.22 Type 2 diabetes mellitus with diabetic chronic kidney disease; E87.5 Hyperkalemia; E83.42 Hypomagnesemia; E86.0 Dehydration; J40 Bronchitis, not specified as acute or chronic; Z79.84 Long term (current) use of oral hypoglycemic drugs; Z86.718 Personal history of other venous thrombosis and embolism; Z86.711 Personal history of pulmonary embolism; Z79.01 Long term (current) use of anticoagulants; Z87.891 Personal history of nicotine dependence
CPT/HCPCS: 0241U; 36415; 71045; 80048; 80051; 80053; 80069; 81001; 82010; 82803; 82947; 83605; 83735; 84100; 84145; 84436; 84439; 84443; 85025; 85027; 85610; 87040; 87077; 87086; 87186; 93005; 93010; 94640; 94664; 94760; 94762; 96365-59; 96367; 96368; 99285-25; A9270; C1751; J0295; J0696; J1815; J2405; J3475; J3480; J7030; J7042; J7050; J7120